=== PATIENT | male | born 1960 | race Caucasian/White ===

== ENCOUNTER 2016-04-14 11:12 | Day surgery (SDC) | payer MEDICARE ==
[~2016-04-14] VITALS: Ht 162.6 cm; Wt 159.2 kg
[~2016-04-14 11:12] MED LIST: ASPIRIN EC81 M1 PO; ELIQUIS2.5 MG PO; FARXIGA10 MG PO; HYDROCODONE-APA1 TAB PO; HYZAAR 100-25 T1 TAB PO; PERCOCET 10/3251 TA1 PO; ZOLOFT50 MG PO
[2016-04-14 12:33] LABS: HEMATOCRIT 43.1 % (42.0-54.0); HEMOGLOBIN 14.6 g/dL (13.5-17.5); MCH 31.4 pg (26.0-34.0); MCHC 33.9 g/dL (31.0-37.0); MCV 92.7 fL (80.0-100.0); MEAN PLATELET VOLUME 10.8 fL (7.4-10.4); RBC 4.65 10x6/uL (4.20-6.10); RDW 13.5 % (11.5-14.5); WBC 7.6 10x3/uL (4.8-10.8)
[2016-04-14 12:36] VITALS: Ht 162.6 cm; Wt 159.2 kg
[2016-04-14 12:42] LABS: CALC OSMOLALITY 282 mosm/kg (275-300); CARBON DIOXIDE 28.3 mmol/L (21.0-32.0); CHLORIDE - SERUM 103 mmol/L (98-107); CREATININE - SERUM 0.8 mg/dL (0.6-1.3); GLUCOSE 208 mg/dL (74-106); POTASSIUM - SERUM 3.8 mmol/L (3.5-5.1); SODIUM 138 mmol/L (136-145); UREA NITROGEN 16 mg/dL (7-18); eGFR NON AFRICAN AMERICAN > 90 mL/min (90-120)
--- NOTE | 2016-04-14 14:16 | NUR ---
PATIENT LEFT ON OR JOCELINERDAVID.
[2016-04-14] MEDS ORDERED: PERCOCET 10/3251 TA1 PO (14:30)
--- NOTE | 2016-04-14 15:20 | NUR ---
ASSISTED PATIENT TO AMBULATE TO BATHROOM WITH KNEE IMMOBILIZER ON, USING WALKER, AMBULATED WITHOUT DIFFICULTY. VOIDED LARGE AMOUNT IN TOILET AND AMBULATED BACK TO BEDSIDE CHAIR. PIV DC'D WITH TIP INTACT. PATIENT DRESSING WITH DAUGHTER'S HELP
--- NOTE | 2016-04-14 15:35 | NUR ---
DISCHARGE INSTRUCTIONS REVIEWED WITH PATIENT. STRESSED TO PATIENT THAT ONCE NERVE BLOCK COMPLETELY WEARS OFF, MOVEMENT AND BENDING OF LEFT KNEE IS IMPORTANT, BUT TO WEAR IMMOBILIZER ESPECIALLY WHEN UP UNTIL BLOCK WEARS OFF. STATES UNDERSTANDING. DISCHARGED HOME VIA WHEELCHAIR TO PRIVATE VEHICLE WITH DAUGHTER
--- NOTE | 2016-04-15 11:14 | OP ---
PATIENT NAME: DELMER OVIEDO MEDICAL RECORD: [id number] :56 LOCATION:D.OPS ADMISSION DATE: SURGEON: JOSSELIN VACA MD DATE OF OPERATION: 04/14/2016 PREOPERATIVE DIAGNOSIS: Postoperative adhesive capsulitis of the left knee. POSTOPERATIVE DIAGNOSIS: Postoperative adhesive capsulitis of the left knee. PROCEDURE: Left knee manipulation under anesthesia. SURGEON: Josselin Vaca MD ANESTHESIA: TIVA. INTRAOPERATIVE COMPLICATIONS: None. SUMMARY OF PATHOLOGIC FINDINGS: The patient was manipulable to about 120 degrees. He had very extensive adhesions. OPERATIVE SUMMARY IN DETAIL: After obtaining the appropriate preoperative orthopedic surgery consents as well as anesthetic consultation, evaluation and clearance, this very obese male was brought to the operating room and while in hospital [facility] was given TIVA anesthesia. The knee was stabilized and manipulated in flexion and extension getting good release to about 120 degrees. Having completed this, he was taken back to outpatient in stable condition. All final needle and sponge counts were correct. TRANSINT:[id number] Voice Confirmation ID: [id number] DOCUMENT ID: [id number] JOSSELIN VACA MD at 1114 CC: [id number] DICTATION DATE: 04/14/16 1432 SCRAP CHARGER: 04/14/16 2046 [facility] 04/14/16 [id number] [place] [address]
== END 2016-04-14 15:35 | disposition home or self-care (01) ==
LOC: D.OPS 11:12 → D.PAN 13:00 → D.OPS 13:30 → D.PAN 13:45 → D.OPS 15:35 → D.PAN 18:15
PROVIDERS: Anesthesiology
DX: M75.02 Adhesive capsulitis of left shoulder (principal); E66.9 Obesity, unspecified

== ENCOUNTER 2016-04-29 00:35 | Emergency (ER) | payer MEDICARE ==
[2016-04-14 12:36] VITALS: BMI 60.4
== END 2016-04-29 01:29 | disposition home or self-care (01) ==
LOC: D.ER 00:35
DX: K59.00 Constipation, unspecified (principal); E11.9 Type 2 diabetes mellitus without complications; I10 Essential (primary) hypertension; F17.200 Nicotine dependence, unspecified, uncomplicated

== ENCOUNTER 2017-09-13 16:58 | Emergency (ER) | payer MEDICARE ==
[~2017-09-13] VITALS: Ht 162.6 cm; Wt 161.8 kg
[2017-09-13 16:59] VITALS: Ht 162.6 cm; Wt 161.8 kg
[2017-09-13 19:10] LABS: BASOPHILS 0.1 % (0-2); EOSINOPHILS 0.1 % (0-7); HEMATOCRIT 43.3 % (42.0-54.0); HEMOGLOBIN 14.7 g/dL (13.5-17.5); IMMATURE GRANULOCYTES 0.2 % (0-5); LYMPHOCYTES 4.9 % (15-50); MCH 31.3 pg (26.0-34.0); MCHC 33.9 g/dL (31.0-37.0); MCV 92.3 fL (80.0-100.0); MEAN PLATELET VOLUME 11.2 fL (7.4-10.4); MONOCYTES 6.3 % (2-11); NEUTROPHILS 88.4 % (40-80); RBC 4.69 10x6/uL (4.20-6.10); WBC 13.3 10x3/uL (4.8-10.8)
[2017-09-13 19:11] LABS: PLATELET COUNT 200 10x3/uL (130-400)
[2017-09-13 19:26] LABS: ALBUMIN 3.1 g/dL (3.4-5.0); ALKALINE PHOSPHATASE 86 U/L (46-116); ALT (SGPT) 59 U/L (10-68); BILIRUBIN - TOTAL 0.95 mg/dL (0.2-1.3); CALC OSMOLALITY 279 mosm/kg (275-300); CALCIUM 8.9 mg/dL (8.5-10.1); CARBON DIOXIDE 27.4 mmol/L (21.0-32.0); CHLORIDE - SERUM 98 mmol/L (98-107); CREATININE - SERUM 0.9 mg/dL (0.6-1.3); GLUCOSE 257 mg/dL (74-106); POTASSIUM - SERUM 3.8 mmol/L (3.5-5.1); PROTEIN - SERUM 7.5 g/dL (6.4-8.2); SODIUM 136 mmol/L (136-145); UREA NITROGEN 10 mg/dL (7-18); eGFR NON AFRICAN AMERICAN > 90 mL/min (90-120)
[2017-09-13 19:34] LABS: APPEARANCE HAZY (CLEAR); BACTERIA FEW /hpf (NONE SEEN); BILIRUBIN NEGATIVE (NEGATIVE); COLOR YELLOW (YELLOW); EPITHELIAL CELLS 0-5 /hpf (0-5); GLUCOSE 1000 mg/dL (NEGATIVE); KETONE LARGE mg/dL (NEGATIVE); NITRITE NEGATIVE (NEGATIVE); PROTEIN NEGATIVE (NEGATIVE); RED CELLS - URINE >50 /hpf (0-5); UROBILINOGEN NORMAL (NORMAL); WHITE CELLS - URINE 0-5 /hpf (0-5)
[2017-09-13 20:12] VITALS: BP 142/78
== END 2017-09-13 20:13 | disposition home or self-care (01) ==
LOC: D.ER 16:58
PROVIDERS: Family Medicine
DX: N39.0 Urinary tract infection, site not specified (principal); R31.9 Hematuria, unspecified; E11.9 Type 2 diabetes mellitus without complications; I10 Essential (primary) hypertension; J44.9 Chronic obstructive pulmonary disease, unspecified; F17.200 Nicotine dependence, unspecified, uncomplicated

== ENCOUNTER 2018-01-17 20:52 | Emergency (ER) | payer MEDICARE ==
[~2018-01-17] VITALS: Ht 162.6 cm; Wt 151.5 kg
[2018-01-17 21:01] VITALS: Ht 162.6 cm; Wt 151.5 kg
[2018-01-17 21:28] LABS: BASOPHILS 0.6 % (0-2); EOSINOPHILS 3.5 % (0-7); HEMATOCRIT 43.3 % (42.0-54.0); HEMOGLOBIN 14.8 g/dL (13.5-17.5); IMMATURE GRANULOCYTES 0.1 % (0-5); LYMPHOCYTES 35.4 % (15-50); MCH 31.5 pg (26.0-34.0); MCHC 34.2 g/dL (31.0-37.0); MCV 92.1 fL (80.0-100.0); MONOCYTES 9.8 % (2-11); NEUTROPHILS 50.6 % (40-80); PLATELET COUNT 221 10x3/uL (130-400); RDW 13.5 % (11.5-14.5); WBC 7.1 10x3/uL (4.8-10.8)
[2018-01-17 21:35] LABS: ALBUMIN 3.2 g/dL (3.4-5.0); ALKALINE PHOSPHATASE 69 U/L (46-116); ALT (SGPT) 73 U/L (10-68); BILIRUBIN - TOTAL 0.79 mg/dL (0.2-1.3); CALC OSMOLALITY 281 mosm/kg (275-300); CARBON DIOXIDE 29.6 mmol/L (21.0-32.0); CHLORIDE - SERUM 102 mmol/L (98-107); CREATININE - SERUM 0.8 mg/dL (0.6-1.3); POTASSIUM - SERUM 3.8 mmol/L (3.5-5.1); PROTEIN - SERUM 7.4 g/dL (6.4-8.2); SODIUM 142 mmol/L (136-145); UREA NITROGEN 9 mg/dL (7-18); eGFR NON AFRICAN AMERICAN > 90 mL/min (90-120)
[2018-01-17 21:36] LABS: GLUCOSE 107 mg/dL (74-106)
[2018-01-17 22:05] LABS: THYROID STIMULATING HORMONE 1.17 uIU/mL (0.36-3.74)
[2018-01-17 23:35] VITALS: BP 116/62
[2018-01-17 23:36] LABS: APPEARANCE HAZY (CLEAR); BILIRUBIN NEGATIVE (NEGATIVE); COLOR YELLOW (YELLOW); GLUCOSE NEGATIVE (NEGATIVE); KETONE SMALL mg/dL (NEGATIVE); NITRITE NEGATIVE (NEGATIVE); PROTEIN NEGATIVE (NEGATIVE); UROBILINOGEN NORMAL (NORMAL)
[2018-01-17 23:43] LABS: BACTERIA FEW /hpf (NONE SEEN); EPITHELIAL CELLS 0-5 /hpf (0-5); MUCUS <1+ /lpf (NONE SEEN); RED CELLS - URINE 0-5 /hpf (0-5)
== END 2018-01-17 23:35 | disposition home or self-care (01) ==
LOC: D.ER 20:52
PROVIDERS: Family Medicine
DX: R68.2 Dry mouth, unspecified (principal); E11.9 Type 2 diabetes mellitus without complications; I10 Essential (primary) hypertension; J44.9 Chronic obstructive pulmonary disease, unspecified

== ENCOUNTER 2018-05-13 10:15 | Day surgery (SDC) | payer MEDICARE ==
[2018-05-11 15:26] LABS: HEMATOCRIT 43.1 % (42.0-54.0); HEMOGLOBIN 14.6 g/dL (13.5-17.5); MCH 32.7 pg (26.0-34.0); MCHC 33.9 g/dL (31.0-37.0); MCV 96.4 fL (80.0-100.0); MEAN PLATELET VOLUME 11.3 fL (7.4-10.4); RBC 4.47 10x6/uL (4.20-6.10); RDW 13.4 % (11.5-14.5); WBC 7.1 10x3/uL (4.8-10.8)
[2018-05-11 15:52] LABS: CALC OSMOLALITY 287 mosm/kg (275-300); CALCIUM 9.2 mg/dL (8.5-10.1); CARBON DIOXIDE 27.9 mmol/L (21.0-32.0); CHLORIDE - SERUM 106 mmol/L (98-107); CREATININE - SERUM 0.7 mg/dL (0.6-1.3); GLUCOSE 140 mg/dL (74-106); POTASSIUM - SERUM 4.1 mmol/L (3.5-5.1); SODIUM 144 mmol/L (136-145); UREA NITROGEN 10 mg/dL (7-18); eGFR NON AFRICAN AMERICAN > 90 mL/min (90-120)
[~2018-05-13] VITALS: Ht 162.6 cm; Wt 84.4 kg
[~2018-05-13 10:15] MED LIST changes: +MULTI-DAY VITAM1 TAB PO; +VITAMIN B-1100 M1 PO
[2018-05-13] MEDS ORDERED: HYDROCODON-ACE1 EAC7 PO (13:01)
[2018-05-13 13:18] VITALS: BP 136/81; Ht 162.6 cm; Wt 84.4 kg
[2018-05-13] MEDS ORDERED: HYDROCODON-ACE1 EA10 PO (15:36)
--- NOTE | 2018-05-13 17:06 | NUR ---
1635 IV DC'D. NO BLEEDING AT SITE. BANDAID APPLIED.
--- NOTE | 2018-05-17 10:04 | OP ---
PATIENT NAME: DELMER OVIEDO MEDICAL RECORD: [id number] :56 LOCATION:[facility] ADMISSION DATE: SURGEON: JOSSELIN VACA MD DATE OF OPERATION: 05/13/2018 PREOPERATIVE DIAGNOSIS: Trigger thumb, left thumb. POSTOPERATIVE DIAGNOSIS: Trigger thumb, left thumb. PROCEDURE: Release trigger thumb, left thumb. SURGEON: Josselin Vaca MD ANESTHESIA: TIVA. INTRAOPERATIVE COMPLICATIONS: None. SUMMARY OF PATHOLOGIC FINDINGS: The patient with a very tight A1 matthew of the thumb consistent with diagnosis of trigger thumb. OPERATIVE SUMMARY IN DETAIL: After obtaining the appropriate preoperative orthopedic surgery consent, the patient was brought to the operating room and placed on the operating table in supine position. After adequate TIVA anesthesia was administered, the patient's left upper extremity was prepped and draped in routine sterile fashion. Esmarch was used as a tourniquet. It was clamped at the level of the wrist. The area was locally infiltrated with 0.25% Marcaine plain. A small incision was made directly over the A1 matthew. A combination of Ragnell retractors as well as skin hooks were used to hold the digital nerves out of the way while the A1 matthew was incised in its entirety. The thumb flexor tendon was exposed and inspected and found to have some excoriation, but no tendon changes. No tendon tears. The wound was then irrigated and closed with 4-0 Prolene in interrupted fashion. Sterile dressings were applied. The Esmarch was removed. The patient was awakened, taken to recovery room in stable condition. All final needle and sponge counts were correct. TRANSINT:[id number] Voice Confirmation ID: [id number] DOCUMENT ID: [id number] JOSSELIN VACA MD at 1004 CC: [id number] DICTATION DATE: 05/13/18 1644 HIDE EXAMINER: 05/13/18 2225 [facility] 05/13/[address] [address]
== END 2018-05-13 16:52 | disposition home or self-care (01) ==
LOC: D.OPS 10:15 → D.PAN 12:45 → D.OPS 12:45 → D.PAN 20:00 → D.OPS 20:00
PROVIDERS: Anesthesiology; ATTEND Orthopaedic Surgery
DX: M65.312 Trigger thumb, left thumb (principal); Z01.812 Encounter for preprocedural laboratory examination

== ENCOUNTER 2018-09-01 11:06 | Emergency (ER) | payer MEDICARE ==
[~2018-09-01] VITALS: Ht 162.6 cm; Wt 112.5 kg
[~2018-09-01 11:06] MED LIST changes: +HYDROCODON-ACE1 EA10 PO; +HYDROCODON-ACE1 EAC7 PO
[2018-09-01 11:14] VITALS: Ht 162.6 cm; Wt 112.5 kg
[2018-09-01 13:43] VITALS: BP 134/76
== END 2018-09-01 13:43 | disposition home or self-care (01) ==
LOC: D.ER 11:06
DX: M54.2 Cervicalgia (principal); E11.9 Type 2 diabetes mellitus without complications

== ENCOUNTER → 2019-02-17 19:07 | Outpatient (CLI) | payer MEDICARE ==
[2018-09-01 11:14] VITALS: BMI 49.2
[2019-02-17 19:20] LABS: BASOPHILS 0.1 % (0-2); EOSINOPHILS 1.5 % (0-7); HEMATOCRIT 41.8 % (42.0-54.0); HEMOGLOBIN 13.7 g/dL (13.5-17.5); IMMATURE GRANULOCYTES 0.1 % (0-5); LYMPHOCYTES 26.9 % (15-50); MCH 32.5 pg (26.0-34.0); MCHC 32.8 g/dL (31.0-37.0); MCV 99.3 fL (80.0-100.0); MEAN PLATELET VOLUME 11.4 fL (7.4-10.4); MONOCYTES 6.8 % (2-11); NEUTROPHILS 64.6 % (40-80); RBC 4.21 10x6/uL (4.20-6.10); RDW 13.1 % (11.5-14.5); WBC 7.5 10x3/uL (4.8-10.8)
[2019-02-17 19:22] LABS: PLATELET COUNT 182 10x3/uL (130-400)
[2019-02-17 20:35] LABS: ERYTHROCYTE SEDIMENTATION RATE 6 mm/hr (0-20)
== END | disposition home or self-care (01) ==
LOC: D.LABREF 19:07
PROVIDERS: ATTEND Clinical Nurse Specialist Family Health
DX: M25.562 Pain in left knee (principal)

== ENCOUNTER → 2019-02-24 07:50 | Outpatient (CLI) | payer MEDICARE ==
[2018-09-01 11:14] VITALS: BMI 49.2
== END | disposition home or self-care (01) ==
LOC: D.NM 07:50
PROVIDERS: ATTEND Clinical Nurse Specialist Family Health
DX: T84.84XA Pain due to internal orthopedic prosthetic devices, implants and grafts, initial encounter (principal)

== ENCOUNTER → 2019-03-03 17:40 | Outpatient (CLI) | payer MEDICARE ==
[2018-09-01 11:14] VITALS: BMI 49.2
== END | disposition home or self-care (01) ==
LOC: D.LABREF 17:40
PROVIDERS: ATTEND Orthopaedic Surgery
DX: M17.12 Unilateral primary osteoarthritis, left knee (principal)

== ENCOUNTER 2019-03-04 09:50 | Inpatient (IN) | payer MEDICARE ==
[~2019-03-04] VITALS: Ht 162.6 cm; Wt 81.8 kg
[2019-03-22] MEDS ORDERED: HYDROCODON-ACE1 EA10 PO (15:15)
[2019-03-23 11:12] LABS: BASOPHILS 0.3 % (0-2); EOSINOPHILS 0.5 % (0-7); HEMATOCRIT 41.5 % (42.0-54.0); HEMOGLOBIN 14.1 g/dL (13.5-17.5); IMMATURE GRANULOCYTES 0.3 % (0-5); LYMPHOCYTES 14.3 % (15-50); MCH 32.8 pg (26.0-34.0); MCV 96.5 fL (80.0-100.0); MEAN PLATELET VOLUME 9.7 fL (7.4-10.4); MONOCYTES 8.1 % (2-11); NEUTROPHILS 76.5 % (40-80); RDW 12.6 % (11.5-14.5); WBC 10.2 10x3/uL (4.8-10.8)
[2019-03-23 11:15] LABS: CALC OSMOLALITY 280 mosm/kg (275-300); CARBON DIOXIDE 30.2 mmol/L (21.0-32.0); CHLORIDE - SERUM 102 mmol/L (98-107); CREATININE - SERUM 0.9 mg/dL (0.6-1.3); GLUCOSE 116 mg/dL (74-106); POTASSIUM - SERUM 3.7 mmol/L (3.5-5.1); SODIUM 141 mmol/L (136-145); UREA NITROGEN 9 mg/dL (7-18); eGFR NON AFRICAN AMERICAN > 90 mL/min (90-120)
[2019-03-23 11:17] LABS: APTT 32.8 SECONDS (22.8-39.4); INR 1.1 (0.85-1.17); PROTIME 14.2 SECONDS (11.6-15.0)
[2019-03-23 11:25] LABS: PLATELET COUNT 249 10x3/uL (130-400)
[2019-03-23 12:11] LABS: APPEARANCE CLEAR (CLEAR); BACTERIA FEW /hpf (NEGATIVE); BILIRUBIN NEGATIVE (NEGATIVE); CALCIUM OXALATE CRYSTALS 0-5 /hpf (NONE SEEN); COLOR DK YELLOW (YELLOW); EPITHELIAL CELLS OCC /hpf (0-5); GLUCOSE NEGATIVE (NEGATIVE); KETONE NEGATIVE (NEGATIVE); MUCUS <1+ /lpf (NONE SEEN); NITRITE NEGATIVE (NEGATIVE); PROTEIN NEGATIVE (NEGATIVE); RED CELLS - URINE NONE SEEN /hpf (0-5); SPECIFIC GRAVITY 1.015 (1.005-1.020); URIC ACID CRYSTALS OCC /hpf (NONE SEEN); WHITE CELLS - URINE RARE /hpf (NEGATIVE)
[2019-03-28] VITALS (12 sets, daily range): BP systolic 89–124; BP diastolic 44–79; Ht 162.6 cm; Wt 81.8 kg
[2019-03-28 06:57] LABS: APPEARANCE CLEAR (CLEAR); BILIRUBIN NEGATIVE (NEGATIVE); COLOR YELLOW (YELLOW); GLUCOSE NEGATIVE (NEGATIVE); KETONE NEGATIVE (NEGATIVE); NITRITE NEGATIVE (NEGATIVE); PROTEIN NEGATIVE (NEGATIVE); UROBILINOGEN NORMAL (NORMAL)
--- NOTE | 2019-03-28 10:15 | NUR ---
RECEIVED TO ROOM 2210 VIA BED FROM PACU. A/O X3. DENIES NEEDS. SKIN IS INTACT WITHOUT REDNESS EXCEPT INCISION TO LEFT KNEE WHICH HAS A DRY INTACT DRESSING IN PLACE. VSS. O2 SAT STARTED TO DROP ENCOURAGED TO COUGH AND DB. SAT DOWN OT 85% ON RA. STAFF WENT TO GET O2 TUBING. PATIENT APPEARS IN NO DISTRESS, SITTING UP AND TALKING. SATS CAME BACK QUICKLY TO 100% ON RA. WILL MONITOR.
--- NOTE | 2019-03-28 13:34 | NUR ---
REQUESTED AND GIVNE ONE HYDROCODONE PO FOR C/O LEFT KNEE PAIN LEVEL 8. WILL MONITOR. BP HAS STABALIZED AT THIS TIME.
--- NOTE | 2019-03-28 16:06 | NUR ---
RESTING QUIETLY IN BED. DENIES NEEDS.
--- NOTE | 2019-03-28 16:30 | NUR ---
BP DOWN TO 73/55. 500CC BOLUS INITIATED. WILL NOTIFY MD. AND MONITOR.
--- NOTE | 2019-03-28 17:45 | NUR ---
SPOKE WITH ELKIN MCCARTNEY RN RE BP. WERE AT 93/59 AT THIS TIME. NEW ORDERS TO INCREASE FLUIDS RECEIVED. WILL MONITOR. ATE MOST OF SUPPER. FAMILY AT BEDSIDE.
--- NOTE | 2019-03-28 18:43 | NUR ---
BP UP 102/63. REQUESTED AND GIVEN ONE HYDROCODONE PO FOR C/O LEFT KNEE PAIN LEVEL 10. WILL MONITOR.
--- NOTE | 2019-03-28 20:00 | NUR ---
A&O X 4, DENIES PAIN/N/V. VS STABLE, FAMILY AT BEDSIDE. DRESSING TO LEFT KNEE C/D/I. WILL CONTINUE TO MONITOR
[2019-03-29 00:30] VITALS: BP 98/62
[2019-03-29 05:12] LABS: HEMATOCRIT 33.2 % (42.0-54.0); HEMOGLOBIN 11.1 g/dL (13.5-17.5); MCH 31.9 pg (26.0-34.0); MCHC 33.4 g/dL (31.0-37.0); MCV 95.4 fL (80.0-100.0); MEAN PLATELET VOLUME 9.8 fL (7.4-10.4); RBC 3.48 10x6/uL (4.20-6.10); RDW 12.5 % (11.5-14.5); WBC 10.1 10x3/uL (4.8-10.8)
[2019-03-29 05:30] VITALS: BP 93/52
--- NOTE | 2019-03-29 05:52 | NUR ---
I have reviewed this patient and I concur with the Shift Assessment completed by the Licensed Practical Nurse today this shift.
--- NOTE | 2019-03-29 07:05 | NUR ---
ALERT AND ORIENTED, RESTING IN BED WITH EYES OPEN. NO C/O PAIN. NO S/S OF ACUTE DISTRESS NOTED. POD #1 LEFT TOTAL KNEE, DRESSING C/D/I. UP WITH PHYSICAL THERAPY. IV TO LEFT HAND, 1/2 NS INFUSING @ 125ML/HR. SITE PATENT WITHOUT REDNESS OR SWELLING. DENIES ANY NEEDS AT THIS TIME. CALL LIGHT IN REACH. WILL CONTINUE TO MONITOR.
[2019-03-29 09:21] VITALS: BP 115/63
[2019-03-29 13:20] VITALS: BP 129/77
--- NOTE | 2019-03-29 15:38 | MORECARE ---
CASE MANAGEMENT DISCHARGE SUMMARY PATIENT: DELMER OVIEDO UNIT: [id number] ADM DATE: 03/28/19 AGE: 58 : 56 SEX: M ROOM/BED: D.2210 AUTHOR: DAPHNEY,DOC PHYSICIAN: REFERRING PHYSICIAN: JOSSELIN VACA MD DATE OF SERVICE: 03/29/19 Discharge Plan Patient Name: DELMER OVIEDO Facility: [facility]:[place] : 1960 Planned Disposition: Home or Self Care Anticipated Discharge Date: Discharge Date: Expected LOS: Initial Reviewer: [email or web address] Initial Review Date: 03/28/2019 Generated: 03/29/19 4:38 pm Comments DCP- Discharge Planning Updated by [id number]: Claribel Mascorro on 03/29/19 2:[address] Patient Name: DELMER OVIEDO Admission Status: Elective Accout number: [id number] Admission Date: 03-28-2019 : 1960 Admission Diagnosis: Attending: JOSSELIN VACA Current LOS: 1 Anticipated DC Date: Planned Disposition: Home or Self Care Primary Insurance: MEDICARE A & B Discharge Planning Comments: CM met with patient to complete initial dc planning assessment. CM educated patient on the CM role and verbal consent given by patient to complete assessment. Patient lives at home with his brothers x 2 & nieces and nephews. At discharge patient plans to return home and feels this is a safe discharge. CM discussed availability of home health, rehab services, and medical equipment. He states that he does not have medical equipment and will need a walker and CPM. Pankaj with [employer] will bring both tomorrow to the patient. Patient would like to do his OP PT at [facility]. I have called and made his appointment for Mar 31 at 10:00. I spoke with Martina. Patient denied any other known discharge needs at this time. CM will continue to follow and will assist as needed with dc plans/needs. Service Clerk: Claribel Mascorro DCPIA - Discharge Planning Initial Assessment Updated by [email or web address]: Claribel Mascorro on 03/29/19 3:31 pm * Is the patient Alert and Oriented? Yes * How many steps to enter\exit or inside your home? * PCP [facility] IN [place] * Pharmacy [facility] * Preadmission Environment Home with Family * ADLs Independent * Equipment None * List name and contact numbers for known caregivers / representatives who currently or will assist patient after discharge: LUCERO (DAUGHTER) * Verbal permission to speak to the caregivers and representatives has been obtained from the patient. N/A * Community resources currently utilized None * Additional services required to return to the preadmission environment? Yes * Can the patient safely return to the preadmission environment? Yes * Has this patient been hospitalized within the prior 30 days at any hospital? No Patient Name: DELMER OVIEDO Page [id number] at 1538 All edits/amendments must be made on the electronic document DICTATION DATE: 03/29/191537 LINDERMAN OPERATOR: CHRIS 03/29/191537 RPT#: [id number] DC DATE: STATUS: ADM IN [facility] [address] [place] [address] END OF REPORT
[2019-03-29 17:18] VITALS: BP 108/65
--- NOTE | 2019-03-29 19:00 | NUR ---
PATIENT SITTING UP IN BED WITH FAMILY AT BEDSIDE. PATIENT HAS NO IV, ON ROOM AIR. PATIENT STATES HIS PAIN IS A 5/6. ENCOURAGED PATIENT TO CALL WITH NEEDS. BED RAILS X2. CALL LIGHT AND BEDSIDE TABLE WITHIN REACH.
--- NOTE | 2019-03-29 19:16 | NUR ---
ALERT AND ORIENTED, FAMILY AT BEDSIDE. NO C/O PAIN. NO S/S OF ACUTE DISTRESS NOTED. IV OUT, INFILTRATED. TRIED TO RESITE, UNSUCCESSFUL. PASSED ON TO THE NEXT SHIFT. DENIES ANY NEEDS AT THIS TIME. CALL LIGHT IN REACH. WILL CONTINUE TO MONITOR.
[2019-03-29 19:30] VITALS: BP 106/64
[2019-03-30 00:30] VITALS: BP 112/67
[2019-03-30 05:30] VITALS: BP 100/69
[2019-03-30 05:57] LABS: HEMATOCRIT 33.7 % (42.0-54.0); MCH 31.3 pg (26.0-34.0); MCHC 32.6 g/dL (31.0-37.0); MEAN PLATELET VOLUME 9.9 fL (7.4-10.4); RBC 3.51 10x6/uL (4.20-6.10); RDW 12.8 % (11.5-14.5)
[2019-03-30 06:37] LABS: WBC 6.8 10x3/uL (4.8-10.8)
--- NOTE | 2019-03-30 09:32 | NUR ---
ALERT AND ORIENTED. LUNGS CLEAR BILATERALLY. HEART SOUNDS S1 AND S2 HEARD IN ALL [place]. BOWEL SOUNDS ACTIVE X 4. SKIN INTACT WITHOUT REDNESS. DRSG C/D/I TO LEFT KNEE. WILL PLACE AQUACEL AG DRSG ON PRIOR TO DC PER CAREY GRANGER IN ROOM WITH PATIENT. NO IV. DENIES NEEDS. BED LOW. CALL HDEZ AND PERSONAL ITEMS IN REACH. WILL CONTINUE TO MONITOR.
[2019-03-30 09:38] VITALS: BP 132/75
[2019-03-30] MEDS ORDERED: PERCOCET 10-321 EAC1 PO (10:04)
[2019-03-30] MEDS ORDERED: ELIQUIS2.5 MG PO (10:04)
--- NOTE | 2019-03-30 10:28 | NUR ---
DRSG CHANGED TO LEFT KNEE FOR DISCHARGE.
--- NOTE | 2019-03-30 12:20 | NUR ---
DISCHARGE EDUCATION PROVIDED BOTH WRITTEN AND VERBAL. VERBALIZED UNDERSTANDING. DENIES FURTHER QUESTIONS. NO IV TO REMOVE. DRSG PREVIOUSLY CHANGED. EXTRA DRSG PROVIDED AND EDUCATION PROVIDED TO CHANGE IN ONE WEEK. WAITING RIDE.
--- NOTE | 2019-03-30 13:33 | MORECARE ---
CASE MANAGEMENT DISCHARGE SUMMARY PATIENT: DELMER OVIEDO UNIT: [id number] ADM DATE: 03/28/19 AGE: 58 : 56 SEX: M ROOM/BED: D.2210 AUTHOR: DAPHNEY,DOC PHYSICIAN: REFERRING PHYSICIAN: JOSSELIN VACA MD DATE OF SERVICE: 03/30/19 Discharge Plan Patient Name: DELMER OVIEDO Facility: [facility]:[place] : 1960 Planned Disposition: Home or Self Care Anticipated Discharge Date: Discharge Date: 03/30/2019 Expected LOS: Initial Reviewer: [email or web address] Initial Review Date: 03/28/2019 Generated: 03/30/19 2:32 pm Comments DCP- Discharge Planning Updated by [email or web address]: Claribel Mascorro on 03/30/19 12:[address] PATIENT DISCHARGED HOME TODAY, [facility] DELIVERED THE WALKER TO HIS ROOM AND THE CPM WILL BE DELIVERED TO HIS HOME. OP PT WAS SET UP TO START TOMORROW DCP- Discharge Planning Updated by [email or web address]: Claribel Mascorro on 03/29/19 2:[address] Patient Name: DELMER OVIEDO Admission Status: Elective Accout number: [id number] Admission Date: 03-28-2019 : 1960 Admission Diagnosis: Attending: JOSSELIN VACA Current LOS: 1 Anticipated DC Date: Planned Disposition: Home or Self Care Primary Insurance: MEDICARE A & B Discharge Planning Comments: CM met with patient to complete initial dc planning assessment. CM educated patient on the CM role and verbal consent given by patient to complete assessment. Patient lives at home with his brothers x 2 & nieces and nephews. At discharge patient plans to return home and feels this is a safe discharge. CM discussed availability of home health, rehab services, and medical equipment. He states that he does not have medical equipment and will need a walker and CPM. Pankaj with [employer] will bring both tomorrow to the patient. Patient would like to do his OP PT at [facility]. I have called and made his appointment for Mar 31 at 10:00. I spoke with Martina. Patient denied any other known discharge needs at this time. CM will continue to follow and will assist as needed with dc plans/needs. Resolution Rep: Claribel Mascorro DCPIA - Discharge Planning Initial Assessment Updated by [email or web address]: Claribel Mascorro on 03/29/19 3:31 pm * Is the patient Alert and Oriented? Yes * How many steps to enter\exit or inside your home? * PCP [facility] IN [place] * Pharmacy [id number] * Preadmission Environment Home with Family * ADLs Independent * Equipment None * List name and contact numbers for known caregivers / representatives who currently or will assist patient after discharge: LUCERO (DAUGHTER) * Verbal permission to speak to the caregivers and representatives has been obtained from the patient. N/A * Community resources currently utilized None * Additional services required to return to the preadmission environment? Yes * Can the patient safely return to the preadmission environment? Yes * Has this patient been hospitalized within the prior 30 days at any hospital? No Last DP export: 03/29/19 2:38 p Patient Name: DELMER OVIEDO Page 91385 at 1333 All edits/amendments must be made on the electronic document DICTATION DATE: 03/30/19 1332 SURVEYOR: CHRIS 03/30/19 1332 RPT#: [id number] DC DATE:03/30/19 STATUS: DIS IN [facility] [address] [place] [address] END OF REPORT
--- NOTE | 2019-03-30 17:54 | OP ---
PATIENT NAME: DELMER OVIEDO MEDICAL RECORD: [id number] :56 LOCATION:D.MS [facility] ADMISSION DATE:03/28/19 SURGEON: JOSSELIN VACA MD DATE OF OPERATION: 03/28/2019 PREOPERATIVE DIAGNOSIS: Painful total knee arthroplasty with laxity. POSTOPERATIVE DIAGNOSIS: Painful total knee arthroplasty with laxity. PROCEDURE: Total knee revision left poly only. SURGEON: Josselin Vaca MD TRAIN ATTENDANT: Abilio Moser. INTRAOPERATIVE COMPLICATIONS: None. SUMMARY OF PATHOLOGIC FINDINGS: The patient did have instability in flexion as well as extension. He also had terminal flexion that was tight; however, after revision range of motion was 0-135 degrees. IMPLANTS USED: Triathlon X3 tibial bearing insert, size 5 x 11. OPERATIVE SUMMARY IN DETAIL: After obtaining the appropriate preoperative orthopedic surgery consent as well as anesthetic consultation, evaluation and clearance, the patient was brought to the operating room and placed on the operating table in supine position. After adequate general laryngeal mask airway was administered, tourniquet was placed on the proximal aspect of the left lower extremity. Left lower extremity was then prepped and draped in routine sterile fashion. At this point, appropriate timeout was taken and agreed upon by all. The leg was elevated and exsanguinated, tourniquet inflated to 350 mmHg. Midline incision was made over the previous incision, taken down the paramedian arthrotomy was performed. The patella was subluxed laterally and the components were exposed. With the knee in approximately 135 degrees of flexion, the polyethylene was removed with little degree of difficulty and it had a slight abnormal wear pattern on the lateral component. This was brought to the attention to the Yvonne rep. The tibia was then subluxed completely and trials were undertaken. The 11 was put in along with a 13; 13 caused tension in both flexion and extension. The 11 was the appropriate insert. The 11 polyethylene was snapped into place. The knee was taken through range of motion with good patellar tracking. Wound was copiously irrigated and closed by Abilio Moser after a gram of vancomycin and a gram of tobramycin was placed in it. The skin was closed with #1 Vicryl followed by 2-0 Vicryl and skin heron. Sterile dressings were applied. Tourniquet was deflated. The patient was awakened, taken to recovery in stable condition. All final needle and sponge counts were correct. TRANSINT:[id number] Voice Confirmation ID: [id number] DOCUMENT ID: [id number] OPERATIVE REPORT [id number] DELMER OVIEDO MD, JOSSELIN ERWIN at 1754 CC: [id number] DICTATION DATE: 03/28/19 09 BRICK MASON: 03/28/19 1531 DIS IN 03/30/19 [facility] [address] [id number]
== END 2019-03-30 12:53 | disposition home or self-care (01) | DRG 489 ==
LOC: D.SDCHOLD 03-28 05:20 → D.MS 03-28 05:20 → D.SDCHOLD 03-28 07:30 → D.MS 03-28 09:34 → D.SDCHOLD 03-28 10:00 → D.MS 03-28 13:27 → D.SDCHOLD 03-28 13:27 → D.MS 03-30 12:53
PROVIDERS: ADMIT Orthopaedic Surgery; ATTEND Orthopaedic Surgery
PROC: 0SUW09Z Supplement Left Knee Joint, Tibial Surface with Liner, Open Approach (ICD-10-PCS; 2019-03-28)
PROC: 0SPD09Z Removal of Liner from Left Knee Joint, Open Approach (ICD-10-PCS; principal; 2019-03-28 07:30)
DX: T84.84XA Pain due to internal orthopedic prosthetic devices, implants and grafts, initial encounter (principal); T84.033A Mechanical loosening of internal left knee prosthetic joint, initial encounter; K21.9 Gastro-esophageal reflux disease without esophagitis; E11.9 Type 2 diabetes mellitus without complications; M19.90 Unspecified osteoarthritis, unspecified site

== ENCOUNTER → 2019-09-14 09:53 | Outpatient (CLI) | payer MEDICARE ==
[2019-04-28 01:56] VITALS: BMI 30.9
[~2019-09-14 09:53] MED LIST changes: +AZITHROMYCIN500 MG PO; +LEVAQUIN750 MG PO; +OMNICEF300 MG PO; +PERCOCET 10-321 EAC1 PO
== END | disposition home or self-care (01) ==
LOC: D.NM 09:53
PROVIDERS: ATTEND Clinical Nurse Specialist Family Health
DX: M25.562 Pain in left knee (principal)

== ENCOUNTER → 2019-09-21 19:00 | Outpatient (CLI) | payer MEDICARE ==
[2019-04-28 01:56] VITALS: BMI 30.9
== END | disposition home or self-care (01) ==
LOC: D.LABREF 19:00
PROVIDERS: ATTEND Orthopaedic Surgery
DX: M25.562 Pain in left knee (principal)

== ENCOUNTER 2019-09-22 12:25 | Inpatient (IN) | payer MEDICARE ==
[~2019-09-22] VITALS: Ht 162.6 cm; Wt 81.6 kg
[2019-10-06] MEDS ORDERED: MUPIROCIN22 GM TOPICAL (08:21)
[2019-10-06 08:51] LABS: BASOPHILS 0.5 % (0-2); EOSINOPHILS 2.7 % (0-7); HEMATOCRIT 40.5 % (42.0-54.0); HEMOGLOBIN 13.5 g/dL (13.5-17.5); IMMATURE GRANULOCYTES 0.2 % (0-5); LYMPHOCYTES 34.2 % (15-50); MCH 32.5 pg (26.0-34.0); MCHC 33.3 g/dL (31.0-37.0); MCV 97.4 fL (80.0-100.0); MEAN PLATELET VOLUME 9.5 fL (7.4-10.4); NEUTROPHILS 53.4 % (40-80); RBC 4.16 10x6/uL (4.20-6.10); RDW 13.2 % (11.5-14.5); WBC 4.4 10x3/uL (4.8-10.8)
[2019-10-06 08:58] LABS: CALC OSMOLALITY 279 mosm/kg (275-300); CALCIUM 8.7 mg/dL (8.5-10.1); CARBON DIOXIDE 33.1 mmol/L (21.0-32.0); CHLORIDE - SERUM 107 mmol/L (98-107); CREATININE - SERUM 0.9 mg/dL (0.6-1.3); GLUCOSE 98 mg/dL (74-106); POTASSIUM - SERUM 3.6 mmol/L (3.5-5.1); SODIUM 141 mmol/L (136-145); UREA NITROGEN 9 mg/dL (7-18); eGFR NON AFRICAN AMERICAN > 90 mL/min (90-120)
[2019-10-06 09:05] LABS: PLATELET COUNT 135 10x3/uL (130-400)
[2019-10-06 09:15] LABS: PROTIME 13.2 SECONDS (11.6-15.0)
[2019-10-06 09:16] LABS: APTT 31.1 SECONDS (22.8-39.4)
[2019-10-06 10:06] LABS: BILIRUBIN NEGATIVE (NEGATIVE); GLUCOSE NEGATIVE (NEGATIVE); KETONE NEGATIVE (NEGATIVE); NITRITE NEGATIVE (NEGATIVE); SPECIFIC GRAVITY 1.025 (1.005-1.020)
[2019-10-06 10:10] LABS: BACTERIA FEW /hpf (NEGATIVE); CALCIUM OXALATE CRYSTALS 0-5 /hpf (NONE SEEN); EPITHELIAL CELLS OCC /hpf (0-5); RED CELLS - URINE OCC /hpf (0-5)
[2019-10-07] MEDS ORDERED: [UNRECOGNIZED DRUG - REMARK] (15:24)
[2019-10-07] MEDS ORDERED: LIORESAL 10 MG10 MG PO (16:33)
[2019-10-10 08:24] VITALS: BP 146/78; Ht 162.6 cm; Wt 81.6 kg
[2019-10-10 08:54] LABS: BILIRUBIN NEGATIVE (NEGATIVE); GLUCOSE NEGATIVE (NEGATIVE); KETONE NEGATIVE (NEGATIVE); NITRITE NEGATIVE (NEGATIVE)
[2019-10-10 08:55] LABS: BACTERIA FEW /hpf (NEGATIVE); EPITHELIAL CELLS RARE /hpf (0-5); RED CELLS - URINE OCC /hpf (0-5); WHITE CELLS - URINE 0-5 /hpf (NEGATIVE)
--- NOTE | 2019-10-13 08:12 | NUR ---
ON 10/10/19, PT WAS ADMITTED TO OP FOR PROCEDURE. PT'S PRE-OP UA ON 10/06/19 WAS ABNORMAL; PT WAS GIVEN ANTIBIOTICS TO TAKE OVER THE WEEKEND. UA WAS REPEATED ON ADMISSION ON 10/10/19. UA RETURNED ABNORMAL ONCE AGAIN. DR VACA NOTIFIED AND PROCEDURE WAS CANCELED. NURSE PRACTIONER ELKIN MCCARTNEY NOTIFIED BY PHONE.
== END 2019-10-10 10:00 | disposition home or self-care (01) | DRG 561 ==
LOC: D.SDCHOLD 10-10 06:58
PROVIDERS: ADMIT Orthopaedic Surgery; ATTEND Orthopaedic Surgery
DX: T84.84XA Pain due to internal orthopedic prosthetic devices, implants and grafts, initial encounter (principal); Y83.9 Surgical procedure, unspecified as the cause of abnormal reaction of the patient, or of later complication, without mention of misadventure at the time of the procedure

== ENCOUNTER 2019-10-07 15:10 | Emergency (ER) | payer MEDICARE ==
[~2019-10-07] VITALS: Ht 162.6 cm; Wt 81.8 kg
[~2019-10-07 15:10] MED LIST changes: +MUPIROCIN22 GM TOPICAL
[2019-10-07 15:20] VITALS: Ht 162.6 cm; Wt 81.8 kg
[2019-10-07] MEDS ORDERED: [UNRECOGNIZED DRUG - REMARK] (15:24)
[2019-10-07 15:48] LABS: BASOPHILS 0.4 % (0-2); EOSINOPHILS 1.8 % (0-7); HEMATOCRIT 38.2 % (42.0-54.0); HEMOGLOBIN 12.8 g/dL (13.5-17.5); LYMPHOCYTES 41.3 % (15-50); MCH 32.3 pg (26.0-34.0); MCHC 33.5 g/dL (31.0-37.0); MCV 96.5 fL (80.0-100.0); MEAN PLATELET VOLUME 9.5 fL (7.4-10.4); MONOCYTES 9.5 % (2-11); PLATELET COUNT 134 10x3/uL (130-400); RBC 3.96 10x6/uL (4.20-6.10); RDW 12.9 % (11.5-14.5); WBC 4.5 10x3/uL (4.8-10.8)
[2019-10-07 15:53] LABS: CALC OSMOLALITY 279 mosm/kg (275-300); CALCIUM 8.9 mg/dL (8.5-10.1); CARBON DIOXIDE 32.1 mmol/L (21.0-32.0); CHLORIDE - SERUM 108 mmol/L (98-107); CREATININE - SERUM 0.9 mg/dL (0.6-1.3); GLUCOSE 126 mg/dL (74-106); POTASSIUM - SERUM 3.9 mmol/L (3.5-5.1); SODIUM 140 mmol/L (136-145); UREA NITROGEN 10 mg/dL (7-18); eGFR NON AFRICAN AMERICAN > 90 mL/min (90-120)
[2019-10-07 16:02] LABS: ALKALINE PHOSPHATASE 76 U/L (30-120); ALT (SGPT) 22 U/L (10-68); BILIRUBIN - TOTAL 0.33 mg/dL (0.2-1.3); PROTEIN - SERUM 6.1 g/dL (6.4-8.2)
[2019-10-07 16:09] LABS: INR 1.01 (0.85-1.17); PROTIME 13.3 SECONDS (11.6-15.0)
[2019-10-07 16:15] LABS: TROPONIN-I < 0.017 ng/mL (0.000-0.060)
[2019-10-07] MEDS ORDERED: LIORESAL 10 MG10 MG PO (16:33)
[2019-10-07 16:46] VITALS: BP 143/70
== END 2019-10-07 16:47 | disposition home or self-care (01) ==
LOC: D.ER 15:10
PROVIDERS: Family Medicine
DX: M54.2 Cervicalgia (principal); R00.1 Bradycardia, unspecified; M62.838 Other muscle spasm; E11.9 Type 2 diabetes mellitus without complications; I10 Essential (primary) hypertension

== ENCOUNTER 2019-11-27 16:06 | Emergency (ER) | payer MEDICARE ==
[~2019-11-27] VITALS: Ht 162.6 cm; Wt 81.8 kg
[~2019-11-27 16:06] MED LIST changes: +LIORESAL 10 MG10 MG PO; +[UNRECOGNIZED DRUG - REMARK]
[2019-11-27 16:20] VITALS: Ht 162.6 cm; Wt 81.8 kg
[2019-11-27] MEDS ORDERED: STERAPRED DS 1010 MG PO (17:18)
[2019-11-27] MEDS ORDERED: MOBIC7.5 MG PO (17:18)
[2019-11-27] MEDS ORDERED: AUGMENTIN 875-11 TAB PO (17:19)
[2019-11-27] MEDS ORDERED: FLUTICASONE PRO16 GM NASAL (17:19)
[2019-11-27 18:00] VITALS: BP 138/60
== END 2019-11-27 18:01 | disposition home or self-care (01) ==
LOC: D.ER 16:06
DX: M25.519 Pain in unspecified shoulder (principal); H65.02 Acute serous otitis media, left ear; H66.91 Otitis media, unspecified, right ear; E11.9 Type 2 diabetes mellitus without complications; I10 Essential (primary) hypertension; M25.512 Pain in left shoulder

== ENCOUNTER → 2020-01-02 09:19 | Outpatient (CLI) | payer MEDICARE ==
[2019-11-27 16:20] VITALS: BMI 30.9
[~2020-01-02 09:19] MED LIST changes: +AUGMENTIN 875-11 TAB PO; +FLUTICASONE PRO16 GM NASAL; +MOBIC7.5 MG PO; +STERAPRED DS 1010 MG PO
== END | disposition home or self-care (01) ==
LOC: D.CT 09:00
PROVIDERS: ATTEND Clinical Nurse Specialist Family Health
DX: R07.89 Other chest pain (principal)

== ENCOUNTER 2020-06-29 11:31 | Observation (INO) | payer MEDICARE ==
[~2020-06-29] VITALS: Ht 162.6 cm; Wt 81.8 kg
[~2020-06-29 11:31] MED LIST changes: +PERCOCET 5-3251 TAB PO
[2020-06-29] MEDS ORDERED: HYDROCODON-ACE1 EA10 PO (11:47)
[2020-06-29 12:01] LABS: BASOPHILS 0.4 % (0-2); EOSINOPHILS 1.4 % (0-7); HEMATOCRIT 42.8 % (42.0-54.0); HEMOGLOBIN 14.5 g/dL (13.5-17.5); LYMPHOCYTE ABS# 1.39 10x3/uL (1.32-3.57); LYMPHOCYTES 27.8 % (15-50); MCH 31.6 pg (26.0-34.0); MCHC 33.9 g/dL (31.0-37.0); MCV 93.2 fL (80.0-100.0); MEAN PLATELET VOLUME 10.5 fL (7.4-10.4); NEUTROPHIL ABS# 3.07 10x3/uL (1.78-5.38); NEUTROPHILS 61.4 % (40-80); PLATELET COUNT 154 10x3/uL (130-400); RBC 4.59 10x6/uL (4.20-6.10); RDW 13.2 % (11.5-14.5)
[2020-06-29 12:03] LABS: CALC OSMOLALITY 282 mosm/kg (275-300); CARBON DIOXIDE 26.9 mmol/L (21.0-32.0); CHLORIDE - SERUM 107 mmol/L (98-107); CREATININE - SERUM 0.8 mg/dL (0.6-1.3); GLUCOSE 120 mg/dL (74-106); SODIUM 142 mmol/L (136-145); UREA NITROGEN 9 mg/dL (7-18); eGFR NON AFRICAN AMERICAN > 90 mL/min (90-120)
[2020-06-29 12:04] LABS: INR 1.11 (0.85-1.17); PROTIME 13.3 SECONDS (11.6-15.0)
[2020-06-29 12:06] LABS: D-DIMER-QUANTITATIVE 1.07 ug/mLFEU (0.20-0.54)
[2020-06-29 12:17] LABS: ALBUMIN 3.8 g/dL (3.4-5.0); ALKALINE PHOSPHATASE 81 U/L (30-120); ALT (SGPT) 17 U/L (10-68); BILIRUBIN - TOTAL 0.52 mg/dL (0.2-1.3); CKMB 1.2 U/L (0.0-3.6); CREATINE KINASE 95 UL (21-232); MAGNESIUM - SERUM 2.2 mg/dL (1.8-2.4); PRO BNP 234 pg/mL (0-125); PROTEIN - SERUM 7.2 g/dL (6.4-8.2)
[2020-06-29 12:19] LABS: TROPONIN-I < 0.017 ng/mL (0.000-0.060)
[2020-06-29 13:48] LABS: BILIRUBIN NEGATIVE (NEGATIVE); KETONE NEGATIVE (NEGATIVE); NITRITE NEGATIVE (NEGATIVE); UROBILINOGEN NORMAL mg/dL (< 2)
[2020-06-29 13:51] LABS: BACTERIA NONE SEEN HPF (NONE SEEN); SQUAMOUS EPITHELIAL 0-5 HPF (0-4); WHITE CELLS - URINE 0-5 HPF (0-1)
[2020-06-29 15:57] VITALS: BP 161/87
[2020-06-29 15:58] LABS: CREATINE KINASE 76 UL (21-232)
[2020-06-29 16:03] LABS: TROPONIN-I < 0.017 ng/mL (0.000-0.060)
[2020-06-29] MEDS ORDERED: MULTI-DAY VITAM1 TAB PO (16:37)
[2020-06-29 16:44] VITALS: BP 161/87; Ht 162.6 cm; Wt 81.8 kg
[2020-06-29 16:53] VITALS: BP 159/87
[2020-06-29 20:54] VITALS: BP 141/71
[2020-06-29 23:34] LABS: CKMB 0.7 U/L (0.0-3.6); CREATINE KINASE 61 UL (21-232); TROPONIN-I < 0.017 ng/mL (0.000-0.060)
--- NOTE | 2020-06-29 23:40 | NUR ---
PT REQUESTING PAIN MEDS. INFORMED NEXT DOSE DUE AT 0015 HRS. PT STATED UNDERSTANDING.
[2020-06-30 01:56] VITALS: BP 125/71
--- NOTE | 2020-06-30 02:35 | NUR ---
PT RESTING WITH EYES CLOSED. RESP EVEN AND REGULAR. SR UP X1, CALL LIGHT WITHIN REACH.
--- NOTE | 2020-06-30 04:05 | NUR ---
EKG DONE. NO DISTRESS NOTED. CALL LIGHT WITHIN REACH.
[2020-06-30 04:57] LABS: CKMB 0.7 U/L (0.0-3.6); CREATINE KINASE 51 UL (21-232)
[2020-06-30 04:58] LABS: TROPONIN-I < 0.017 ng/mL (0.000-0.060)
[2020-06-30 06:04] LABS: BASOPHILS 0.4 % (0-2); EOSINOPHILS 2.5 % (0-7); HEMOGLOBIN 13.8 g/dL (13.5-17.5); LYMPHOCYTE ABS# 1.82 10x3/uL (1.32-3.57); LYMPHOCYTES 35.5 % (15-50); MCH 31.4 pg (26.0-34.0); MCHC 33.7 g/dL (31.0-37.0); MCV 93.2 fL (80.0-100.0); MEAN PLATELET VOLUME 10.6 fL (7.4-10.4); MONOCYTES 8.2 % (2-11); NEUTROPHIL ABS# 2.73 10x3/uL (1.78-5.38); NEUTROPHILS 53.4 % (40-80); PLATELET COUNT 130 10x3/uL (130-400); RDW 13.1 % (11.5-14.5); WBC 5.1 10x3/uL (4.8-10.8)
[2020-06-30 06:27] LABS: ALBUMIN 3.2 g/dL (3.4-5.0); ALKALINE PHOSPHATASE 73 U/L (30-120); BILIRUBIN - TOTAL 0.58 mg/dL (0.2-1.3); CALC OSMOLALITY 282 mosm/kg (275-300); CALCIUM 8.7 mg/dL (8.5-10.1); CARBON DIOXIDE 29.4 mmol/L (21.0-32.0); CHLORIDE - SERUM 108 mmol/L (98-107); CHOL - HDL RATIO 2.6 ratio (2.3-4.9); CHOLESTEROL, TOTAL 130 mg/dL (0-200); CREATININE - SERUM 0.8 mg/dL (0.6-1.3); GLUCOSE 92 mg/dL (74-106); HDL CHOLESTEROL 51 mg/dL (32-96); LDL CHOLESTEROL 67 mg/dL (0-100); LDL-HDL RATIO 1.3 ratio (1.5-3.5); MAGNESIUM - SERUM 2.3 mg/dL (1.8-2.4); PHOSPHOROUS 3.8 mg/dL (2.5-4.9); POTASSIUM - SERUM 3.9 mmol/L (3.5-5.1); PROTEIN - SERUM 6.2 g/dL (6.4-8.2); SODIUM 143 mmol/L (136-145); TRIGLYCERIDE 63 mg/dL (30-200); UREA NITROGEN 8 mg/dL (7-18); eGFR NON AFRICAN AMERICAN > 90 mL/min (90-120)
[2020-06-30 06:31] LABS: ALT (SGPT) 25 U/L (10-68)
[2020-06-30 06:43] VITALS: BP 147/79
--- NOTE | 2020-06-30 06:43 | NUR ---
VSS THROUGHOUT NIGHT. SB PER CM. PT STATED DILAUDID ALLEVIATED HIS CP. PT NPO UNTIL SEEN BY CARDIOLOGY. NEEDS MET; WILL CONTINUE TO MONITOR.
--- NOTE | 2020-06-30 07:56 | NUR ---
PT RECEIVED AWAKE AND ALERT, ASKING ABOUT WHEN HE GETS TO EAT. INFORMED WAITING FOR CARDIOLOGY TO SEE FIRST. LOVENOX HELD FOR NOW.
[2020-06-30 08:17] VITALS: BP 138/80
[2020-06-30] MEDS ORDERED: LISINOPRIL5 MG PO (11:26)
[2020-06-30] MEDS ORDERED: ASPIRIN EC325 MG PO (11:27)
[2020-06-30] MEDS ORDERED: CLONIDINE HCL0.1 MG PO (11:27)
[2020-06-30] MEDS ORDERED: PROTONIX40 MG PO (11:28)
--- NOTE | 2020-06-30 12:58 | NUR ---
PT'S DISCHARGE INSTRUCTIONS SIGNED AND IV REMOVED. TELEMETRY RETURNED. FAMILY WITH PT WHO WANTS TO WALK OUT TO ER FOR RIDE HOME. SCRIPTS SENT TO [facility].
== END 2020-06-30 12:59 | disposition home or self-care (01) ==
LOC: D.ER 11:31 → D.M2 15:01 → OBSVTIME 15:01 → D.M2 06-30 12:59
PROVIDERS: Family Medicine; ADMIT Emergency Medicine; ATTEND Emergency Medicine
DX: R07.9 Chest pain, unspecified (principal); I10 Essential (primary) hypertension; E11.9 Type 2 diabetes mellitus without complications; R42 Dizziness and giddiness

== ENCOUNTER 2020-07-14 06:57 | Emergency (ER) | payer MEDICARE ==
[~2020-07-14] VITALS: Ht 162.6 cm; Wt 82.6 kg
[~2020-07-14 06:57] MED LIST changes: +ASPIRIN EC325 MG PO; +CLONIDINE HCL0.1 MG PO; +LISINOPRIL5 MG PO; +PROTONIX40 MG PO
[2020-07-14 07:01] VITALS: Ht 162.6 cm; Wt 82.6 kg
[2020-07-14 07:36] LABS: BASOPHILS 0.3 % (0-2); HEMOGLOBIN 13.6 g/dL (13.5-17.5); IMMATURE GRANULOCYTES 0.2 % (0-5); LYMPHOCYTE ABS# 1.62 10x3/uL (1.32-3.57); LYMPHOCYTES 26.7 % (15-50); MCH 31.3 pg (26.0-34.0); MCV 92.2 fL (80.0-100.0); MEAN PLATELET VOLUME 10.4 fL (7.4-10.4); MONOCYTES 7.2 % (2-11); NEUTROPHIL ABS# 3.92 10x3/uL (1.78-5.38); NEUTROPHILS 64.6 % (40-80); RBC 4.34 10x6/uL (4.20-6.10); RDW 13.4 % (11.5-14.5); WBC 6.1 10x3/uL (4.8-10.8)
[2020-07-14 07:43] LABS: PLATELET COUNT 158 10x3/uL (130-400)
[2020-07-14 07:51] LABS: CALC OSMOLALITY 287 mosm/kg (275-300); CARBON DIOXIDE 26.3 mmol/L (21.0-32.0); CHLORIDE - SERUM 109 mmol/L (98-107); CREATININE - SERUM 0.7 mg/dL (0.6-1.3); GLUCOSE 110 mg/dL (74-106); SODIUM 145 mmol/L (136-145); UREA NITROGEN 8 mg/dL (7-18); eGFR NON AFRICAN AMERICAN > 90 mL/min (90-120)
[2020-07-14 07:52] LABS: APTT 29.9 SECONDS (22.8-39.4); INR 1.19 (0.85-1.17)
[2020-07-14 07:58] LABS: ALBUMIN 3.8 g/dL (3.4-5.0); ALKALINE PHOSPHATASE 85 U/L (30-120); ALT (SGPT) 22 U/L (10-68); BILIRUBIN - TOTAL 0.54 mg/dL (0.2-1.3); PROTEIN - SERUM 7.2 g/dL (6.4-8.2)
[2020-07-14] MEDS ORDERED: ACETAMINOPHEN500 M1 PO (09:04)
[2020-07-14] MEDS ORDERED: CYCLOBENZAPRINE10 MG PO (09:04)
[2020-07-14] MEDS ORDERED: IBUPROFEN800 MG PO (09:04)
[2020-07-14 09:35] VITALS: BP 173/94
== END 2020-07-14 09:36 | disposition home or self-care (01) ==
LOC: D.ER 06:57
PROVIDERS: Family Medicine
DX: R07.89 Other chest pain (principal); S20.212A Contusion of left front wall of thorax, initial encounter; M79.10 Myalgia, unspecified site; T14.8XXA Other injury of unspecified body region, initial encounter; E11.9 Type 2 diabetes mellitus without complications; I10 Essential (primary) hypertension; Y04.2XXA Assault by strike against or bumped into by another person, initial encounter; Y93.9 Activity, unspecified; Y92.9 Unspecified place or not applicable